=== PATIENT | female | born 1955 | race Caucasian/White ===

== ENCOUNTER 2017-12-21 15:57 | Inpatient (IN) | payer OTHER ==
[2017-12-21] VITALS (11 sets, daily range): BP systolic 90–131; BP diastolic 60–90
[~2017-12-21] VITALS: Ht 167.6 cm; Wt 94.6 kg
--- NOTE | ~2017-12-21 | HC ---
[facility] [place] [address] CONSULTATION Name: JOSE J RIVERO Room #: 350-P ADM IN M.R.#: [id number] Admission: 12/21/17 Attend Phys: Katiuska Hernandez MD Discharge: Date of : 53 Report #: [id number] THIS REPORT FOR: //name// CC: Gary Hernandez DATE OF SERVICE: 12/31/2017 HISTORY OF PRESENT ILLNESS: The patient is a 62-year-old white female who was admitted with nausea, vomiting, diarrhea. CT of the abdomen showed free air. She is noted to have a bowel perforation. She developed severe sepsis syndrome with shock. She underwent two abdominal surgeries on 12/21/2017 and exploratory laparotomy with small bowel resection, appendectomy, unknown source. She was left open at that time. A second surgery on 12/23/2017 was a second look, nain to the small bowel anastomosis and was thought that the patient had an uncontained acute appendicitis. Her course was complicated by acute renal insufficiency, severe protein-calorie malnutrition, critical illness myopathy. Her TPN is finished and she is now on a soft fiber diet. We are seeing her in rehabilitation medicine consultation. PAST MEDICAL HISTORY: Includes breast cancer status post bilateral mastectomy with tissue flap reconstruction 6 weeks ago. FAMILY HISTORY: Noncontributory. HABITS: No history of chronic alcohol or tobacco abuse. ALLERGIES: No known drug allergies. SOCIAL HISTORY: Lives in a house alone, two steps in. Did not utilize gait aids. She has basement laundry. No family in the area, but notes she has neighbors that can help. REVIEW OF SYSTEMS: Did not offer any current complaints of chest pain, shortness of breath or abdominal discomfort. PHYSICAL EXAMINATION: GENERAL: A 62-year-old white female in no obvious distress. VITAL SIGNS: Last recorded temperature is 98.8, pulse 82, respirations 16, blood pressure 152/60. The patient is alert. HEENT: Appeared to be benign. NEUROLOGIC: Cranial nerves are grossly intact. Facies are symmetric. ABDOMEN: Midline abdominal incision appears to be intact. She has the incision from her recent mastectomies as well, which appeared to be healing. With [facility] [address] [place] [address] CONSULTATION Name: JOSE J RIVERO Room #: 350-P [facility] IN .R.#: [id number] Admission: 12/21/17 Attend Phys: Katiuska Hernandez MD Discharge: Date of : 53 Report #: [id number] functional range of motion of the upper extremities she appears to have strength at a grade 4-/5. Lower extremities, no focal calf swelling, functional range of motion with strength grade 4-/5. DTRs are trace to 1. Sit to stand is contact guard. Gait 160 feet contact guard front-wheeled walker. Bed mobility has been min assist. She does demonstrate decreased endurance. ASSESSMENT: A 62-year-old white female with the following problem list: 1. Critical illness myopathy. 2. Medical complexity with generalized debilitation. 3. Severe sepsis syndrome with shock. 4. Bowel perforation apparently an uncontained acute appendicitis, status post exploratory laparotomy with small bowel resection, appendectomy and second look laparoscopic surgery with stapling small bowel anastomosis. 5. Acute renal insufficiency, which has improved. 6. TPN is finished, now on soft fiber diet. 7. Recent breast cancer with bilateral mastectomy with tissue flap reconstruction 6 weeks prior to admission. PLAN: She is gradually progressing, although definitely has decreased endurance and has weakness as noted above. Insurance will need to be checked regarding rehab therapy options. We will be glad to follow along with you. Rehab unit beds here at [facility] are tight, but we will be glad to follow along with you as noted. <ELECTRONICALLY SIGNED> By: Teddy Vera MD 01/04/18 1226 1210 [id number] Teddy Vera MD /[facility]
--- NOTE | ~2017-12-21 | EKG ---
[address] [address] ELECTROCARDIOGRAM REPORT Name: JOSE J RIVERO Room #: 238- ADM IN M.R.#: [id number] Admission: 12/21/17 Attend Phys: Katiuska Hernandez MD Discharge: Date of : 53 Report #: [id number] THIS REPORT FOR: //name// [facility] Test Date: 2017-12-22 Test Time: 06:58:34 Pat Name: JOSE J RIVERO Department: Room: 238 Gender: F Jacquard Lace Weaver: MEME : 1955 Requested By: Gary Nava Order Number: [id number] MD: Guzman Bermudez Measurements Intervals [place] Rate: 115 P: 68 LA: 131 QRS: 83 QRSD: 87 T: 34 QT: 341 QTc: 472 Interpretive Statements Sinus tachycardia Atrial premature complex Borderline right axis deviation No previous ECG available for comparison Electronically Signed On 12-22-2017 7:49:51 GED TUTOR by Guzman Bermudez [email or web address] <ELECTRONICALLY SIGNED> By: Guzman Bermudez MD 12/22/17 0749 D: [id number] 7 Guzman Bermudez MD /[place]
--- NOTE | ~2017-12-21 | S ---
[facility] [place] [address] SURGICAL PATH RPT PROCEDURE Name: HELEN RIVERO Room #: 238-P ADM IN M.R.#: [id number] Admission: 12/21/17 Date of : 53 Discharge: Report #: [id number] Path Case #: [id number] PATHOLOGY REPORT COLLECTION DATE: 12/21/2017 RECEIVED DATE: 12/22/2017 SUBMITTING PHYS: Dr. Gary Nava, DO OTHER PHYS: Dr. Katiuska Cervantes SPECIMEN(S) RECEIVED: A.Appendix B.Terminal ileum * * * * * * * * * * * * FINAL DIAGNOSIS: A. Appendix, appendectomy: - Marked acute serositis present along the serosal wall. - Mucosa showing hyperplastic changes. - No evidence of acute appendicitis. B. Small bowel, terminal ileum, resection: - Marked acute serositis. - Negative for dysplasia or malignancy. - Viable margins. - One reactive lymph node. COMMENT: The bowel wall shows marked attenuation. There is extensive acute inflammation along the serosal surface consistent with serositis. Ischemic changes are not identified. A definitive area of perforation is not identified as well. (IUV:pit; 12/23/2017) PATHOLOGIST: Sade Henderson M.D. REPORT ELECTRONICALLY SIGNED BY: Sade Henderson M.D. DATE/TIME: 12/23/2017 14:50 * * * * * * * * * * * * GROSS PATHOLOGY: A. Received in formalin labeled "Helen Rivero, appendix," is an appendix measuring 8.4 cm in length and 0.8 cm in diameter with a moderate amount of attached mesoappendix. The serosal surface is pink-ray to dusky pink-johnson in appearance with a slight amount of overlying adhesions. Sectioning reveals a patent lumen filled with fecal material. Manager Local sections are submitted in cassette A1. B. The specimen is received in formalin labeled "Helen Rivero, terminal ileum". Received is an unoriented segment of small bowel [address] [address] SURGICAL PATH RPT PROCEDURE Name: MERVINTAVIAHELEN CRUZ A Room #: [facility] IN .R.#: [id number] Admission: 12/21/17 Date of : 53 Discharge: Report #: [id number] Path Case #: [id number] measuring 11.9 cm in length by 2.5 cm in diameter. Both margins are stapled closed. The serosal surface is dusky pink-ray to pink-johnson in appearance with a slight amount of overlying adhesions, as well as a moderate amount of overlying exudate. The attached mesenteric fat measures up to 2.8 cm in thickness. The specimen is opened along the antimesenteric line to reveal pink-ray mucosa with normal architectural folds. No distinct nodules or lesions are noted grossly. No areas of perforation are noted grossly. Sectioning through the attached mesenteric fat reveals a single readily identifiable lymph node measuring 0.4 cm in maximum dimensions. The specimen is submitted representatively as follows: B1-B2 both margins B3 business development representative cross-sections of mucosa B4 intact lymph node. (CAA; 12/22/2017) CLINICAL HISTORY: Acute abdomen, acute appendicitis, ischemic small bowel, purulent peritonitis INITIAL CPT CODE(S): A; 52332 B; 98490 Professional services performed by [employer] at [facility] [address], [place] [address] Technical services performed by [employer] at [address] [place] [address], [address], [place] [address]. [facility] [address] [place] [address] PHONE: [phone] DIRECTOR: Kendall Tirado M.D. * * * END OF REPORT * * *
--- NOTE | ~2017-12-21 | D ---
[facility] [place] [address] DISCHARGE SUMMARY Name: JOSE J RIVERO Room #: 350-P [facility] IN M.R.#: [id number] Admission: 12/21/17 Attend Phys: Katiuska Hernandez MD Discharge: 01/14/18 Date of : 53 Report #: [id number] THIS REPORT FOR: //name// CC: Gary Hernandez DATE OF SERVICE: 01/14/2018 FINAL DIAGNOSES: 1. Sepsis syndrome. 2. Bowel perforation. 3. Peritonitis. 4. Abdominal incisional wound. 5. Anasarca. 6. Hypertension. 7. Anemia due to acute blood loss. 8. Protein calorie malnutrition. 9. Critical illness myopathy. 10. Recent history of breast cancer. HOSPITAL COURSE: The patient was admitted with abdominal pain. She was diagnosed with bowel perforation and sepsis. She was taken to the operating room by Dr. Nava, which revealed disease involving the pelvis. It was unclear where the exact source was originating, but his thought was that this was probably acute appendicitis with development of peritonitis, pelvic adhesions and some evidence of ischemic bowel related to perforation. Please see the full operative note and pathology reports. This extensive surgery required delayed closure. The following day, she developed an abdominal incisional wound and fluid was drained. Eventually, a wound VAC was placed. She required several ICU days and gradually transferred out to the floor. She had a lot of anasarca responding to diuretics. She was hypertensive and medications were added. She was followed by the ID Service. She had intermittent fevers and elevated white count. Followup CT was revealing some ascites with an ill-defined fluid collection in the left upper quadrant. Unfortunately, this was in a location not amenable to IR drainage. She was treated with antibiotics and usual treatment. Gradually, her medical condition stabilized and improved. She was working with Physical Therapy. Appetite and nutritional levels remained low. Wound VAC remained in place with routine care and IV antibiotics continued. PHYSICAL EXAMINATION: GENERAL: On the day of discharge she was awake and alert. VITAL SIGNS: Stable. LUNGS: Clear. [facility] [address] [place] [address] DISCHARGE SUMMARY Name: JOSE J RIVERO Room #: 350-P [facility] IN M.R.#: [id number] Admission: 12/21/17 Attend Phys: Katiuska Hernandez MD Discharge: 01/14/18 Date of : 53 Report #: [id number] HEART: Regular. ABDOMEN: Soft, normoactive bowel sounds with VAC in place. EXTREMITIES: 2+ edema. Her weight has slowly decreased from over 100 kg down to approximately 94. She still does have some edema. DISPOSITION: She will be transferred to [facility] facility for ongoing IV antibiotics, wound care and close management of her intra-abdominal process. I have signed all her transfer orders, medications, and discussed followup with Dr. De Guzman who will be managing her there. <ELECTRONICALLY SIGNED> By: Teddy Millard MD 01/15/18 0926 0941 1016 Teddy Millard MD /nt
--- NOTE | ~2017-12-21 | H ---
[facility] [place] [address] HISTORY AND PHYSICAL Name: JOSE J RIVERO Room #: 238-P [facility] IN M.R.#: [id number] Admission: 12/21/17 Attend Phys: Katiuska Hernandez MD Discharge: Date of : 53 Report #: [id number] THIS REPORT FOR: //name// CC: Gary Hernandez DATE OF SERVICE: 12/21/2017 CHIEF COMPLAINT: Abdominal pain. HISTORY OF PRESENT ILLNESS: The patient is a 62-year-old female presented to the emergency room with nausea, vomiting, and diarrhea for about 8 days. She complained of severe right lower quadrant abdominal pain yesterday and was seen in the office. She was then directed to the emergency room. Ultimately, a CT of the abdomen revealed free air suggesting a surgical abdominal process. She was taken to the operating room last night for exploratory laparotomy by Dr. Nava, this revealed acute peritonitis and free intraperitoneal fluid due to bowel obstruction and perforation. She remained intubated overnight and remains in ICU. PAST MEDICAL HISTORY: Includes previous mastectomy. PAST SURGICAL HISTORY: As above. FAMILY HISTORY: Noncontributory. SOCIAL HISTORY: No known chronic alcohol or tobacco use. ALLERGIES: None. MEDICATIONS: Femara 2.5 mg daily, vitamin C, calcium, and vitamin D. REVIEW OF SYSTEMS: She is sedated, intubated, cannot provide a review. PHYSICAL EXAMINATION: VITAL SIGNS: Temperature 36.8, pulse 114, respirations 25, blood pressure 110/73, O2 sat 99% on the ventilator. GENERAL: She is sedated, in no distress. HEAD AND NECK: Unremarkable. LUNGS: Clear. HEART: Regular. ABDOMEN: Hypoactive bowel sounds with surgical dressings in place. EXTREMITIES: No cyanosis, clubbing, or edema. [facility] [address] [place] [address] HISTORY AND PHYSICAL Name: JOSE J RIVERO Room #: 238-P [facility] IN [facility]#: [id number] Admission: 12/21/17 Attend Phys: Katiuska Hernandez MD Discharge: Date of : 53 Report #: [id number] Operative note and CT reports were reviewed. LAB DATA: Reviewed. White count is 19, 40% bands. Creatinine 1.1. ASSESSMENT: 1. Sepsis syndrome. 2. Acute abdomen due to bowel perforation. 3. Acute hypoxic respiratory failure. 4. Severe protein-calorie malnutrition with albumin of 2. PLAN: Full ICU cares in place with surgical management of her acute abdominal process. It appears that the second procedure will be planned for tomorrow according to the notes. I have asked pulmonary service and infectious disease service to follow her stay as well. She remains critically ill. <ELECTRONICALLY SIGNED> By: Teddy Millard MD 12/22/17 1602 1057 1113 Teddy Millard MD /nt
--- NOTE | ~2017-12-21 | HC ---
[facility] [place] [address] CONSULTATION Name: JOSE J RIVERO Room #: 238-P ADM IN M.R.#: [id number] Admission: 12/21/17 Attend Phys: Katiuska Hernandez MD Discharge: Date of : 53 Report #: [id number] THIS REPORT FOR: //name// CC: Gary Hernandez TYPE OF REPORT: Infectious diseases consultation. REASON FOR CONSULTATION: I was asked to evaluate concerning severe sepsis and acute abdomen. HISTORY OF PRESENT ILLNESS: The patient was seen in the emergency room after being called by Dr. Campbell who was her attending Emergency Room physician. The patient had been complaining of nausea, some vomiting with loose stools along with severe cramping abdominal pain in the lower abdomen. She felt that she had the flu and was limiting her oral intake. She was just drinking liquids. She denies any fever, although she had rigors 1 week ago at the onset. No prior history of abdominal disease. She does have colon polyposis, which she is followed on a regular basis. She states that her last colonoscopy was improved. She does have diverticulosis. She has breast cancer that was diagnosed in May of this past year. She has had bilateral mastectomies. No adjuvant chemotherapy or radiation. She is on letrozole daily. Approximately 6 weeks ago, she underwent abdominal chest wall reconstructive surgery by Dr. Walton. Abdominal fat and appropriate vasculature was taken from her abdominal pannus and reconstructed into her chest for breast reconstruction. There were no intraoperative complications from this procedure. She did go in last week and performed an incision into the medial aspect of both flaps. For this, she was placed on cephalexin. She took a week of cephalexin that ended 3 days ago. She presented to the outpatient clinic of Dr. Gary De Guzman today. She was taken by EMS to the Emergency Room for further treatment. She has received several liters of IV fluids thus far. She complains of continued abdominal pain. She had very small loose stools 4-5 times per day without blood. Intermittent nausea and vomiting with no blood. Urine output has been diminished. No cough or sputum production. No travel. There has been no erythema or drainage from her abdominal incisions. ALLERGIES: None. MEDICATIONS: Letrozole, vitamin C, vitamin D, Os-Matt and glucosamine. FAMILY HISTORY: Noncontributory other than colon cancer. SOCIAL HISTORY: Nonsmoker. No significant alcohol intake. She is single, has pet dogs. Works as a desk job. [address] [address] CONSULTATION Name: JOSE J RIVERO Fer Room #: 238-P [facility] IN ..#: [id number] Admission: 12/21/17 Attend Phys: Katiuska Hernandez MD Discharge: Date of : 53 Report #: [id number] PAST MEDICAL HISTORY: Unremarkable other than D and C and her breast cancer history. REVIEW OF SYSTEMS: As noted above with no rashes, arthritis symptoms, dysuria or frequency. PHYSICAL EXAMINATION: VITAL SIGNS: Temperature 97.7, heart rate was 120, respiratory rate in the 30s, blood pressure 121/79 and O2 saturation 90% on room air. GENERAL: The patient was dehydrated. Mucous membranes were dry. She was pale. Mental status was normal. Tachycardic. SKIN: Unremarkable other than what is described in her chest and abdomen examination. LYMPH: Unremarkable. HEENT: Unremarkable. NECK: Supple. LUNGS: Few crackles in the bases bilaterally. HEART: Tachycardic and regular. CHEST: Chest wall breast flaps appeared healthy with no drainage or erythema. ABDOMEN: Distended. She had diffuse guarding and rebound tenderness. Lower abdominal incision was unremarkable. Her periumbilical incision was unremarkable. RECTAL: Not performed. EXTREMITIES: Unremarkable. LABORATORY STUDIES: CT scan of the abdomen showed basilar atelectasis, ascites, free air, right kidney stone and diverticulosis. She had inflammatory changes in the abdomen. Sodium 131, potassium 3.4, bicarbonate 20 and creatinine 1.8. Hemoglobin 14.6; platelet count 471,000; white count was 20,000 with 33% bands and 2% metamyelocytes. Lactate 8.2, AST 23, alkaline phosphatase 76, ALT 23 and albumin is 2. IMPRESSION: A 62-year old recent diagnosis of breast cancer and abdominoplasty with resection of skin and fat for reconstruction of breast, now 6 weeks postop with acute abdomen. I suspect perforated viscus. From her presentation, unclear the specific source. She has severe sepsis with marked leukocytosis and left shift, lactic acidosis and acute renal failure. RECOMMENDATIONS: Recommend IV fluid resuscitation, IV antibiotic therapy for abdominal colonic pathogens and surgical intervention. I have discussed with exhaust and muffler fitter, Emergency Room attending and have call out to general surgery for [facility] [address] [place] [address] CONSULTATION Name: JOSE J RIVERO Room #: 238-P [facility] IN M.R.#: [id number] Admission: 12/21/17 Attend Phys: Kaituska Hernandez MD Discharge: Date of : 53 Report #: [id number] emergent laparotomy. The patient will be cared for in the Intensive Care Unit with antibiotics adjusted for renal function. <ELECTRONICALLY SIGNED> By: Salo De Guzman MD 12/22/17 1622 1921 0033 Salo De Guzman MD /nt
--- NOTE | ~2017-12-21 | HC ---
[facility] [place] [address] CONSULTATION Name: JOSE J RIVERO Room #: 350-P ADM IN M.R.#: [id number] Admission: 12/21/17 Attend Phys: Katiuska Hernandez MD Discharge: Date of : 53 Report #: [id number] THIS REPORT FOR: //name// CC: Gary Hernandez DATE OF SERVICE: 01/04/2018 CHIEF COMPLAINT: Surgical incision line abdominal wall. HISTORY OF PRESENT ILLNESS: This is a 63-year-old female patient who is status post exploratory laparotomy with lysis of adhesions, small bowel resection, appendectomy, abdominal washout and ABThera placement due to diffuse purulent peritonitis and severe sepsis on 12/21/2017. She has undergone a second look laparotomy with upper endoscopy, rigid proctoscopy, stapled small bowel anastomosis, abdominal washout and BRANDON drain placed with a BENIGNO wound VAC placed on 12/23/2017. She has been steadily improving. She has had return of bowel function and is eating. There are a few areas of separation along the incision line and I have been asked to see her with regard to wound care. PAST MEDICAL HISTORY: Positive for previous mastectomy. FAMILY HISTORY: Noncontributory. SOCIAL HISTORY: Negative for alcohol or tobacco use. ALLERGIES: None. MEDICATIONS: Include Femara, vitamin C, calcium, vitamin D. ALLERGIES: None. REVIEW OF SYSTEMS: CONSTITUTIONAL: The patient denies fever, chills or weight loss. NEUROLOGICAL: The patient denies focal weakness, numbness, tingling. EYES: The patient denies visual changes, redness or drainage. ENT: The patient denies earache, nasal drainage or sore throat. CARDIOVASCULAR: The patient denies chest pain or palpitations, diaphoresis. PULMONARY: The patient denies cough or shortness of breath. GASTROINTESTINAL: The patient denies nausea, vomiting, diarrhea or abdominal pain. She does note the abdominal incision line. ORTHOPEDIC: The patient denies pain, swelling of the extremities. DERMATOLOGIC: The patient denies rashes, itching, lumps. ENDOCRINE: The patient denies heat or cold intolerance, polydipsia, polyphagia, [facility] [address] [place] [address] CONSULTATION Name: JOSE J RIVERO Fer Room #: 350- ADM IN ..#: [id number] Admission: 12/21/17 Attend Phys: Katiuska Hernandez MD Discharge: Date of : 53 Report #: [id number] polyuria. Other systems in a 14-point review of systems are negative. PHYSICAL EXAMINATION: VITAL SIGNS: At this time include pulse rate 92, respiratory rate 16, blood pressure noted to be 222/66, temperature 101.3. GENERAL: This is a well-developed, well-nourished female patient, who appears to be in minimal distress. HEENT: Normocephalic. Nose and throat are clear. NECK: Supple. LUNGS: Clear. HEART: Regular rhythm without a murmur. ABDOMEN: Slightly distended. It is nontender and soft. There is a midline abdominal incision. In the lower portion of the abdominal incision, there are 2 areas of separation. There is a moderate amount of undermining and both of these areas do seem to communicate. There is a serosanguineous type drainage noted. There is no odor. No purulent or fecal material is noted in the drainage. EXTREMITIES: Without clubbing, cyanosis or edema. NEUROLOGIC: The patient is alert, oriented and appropriate with moving all 4 extremities spontaneously. LABORATORY DATA: Includes sodium 133, potassium 3.8, chloride 99, CO2 of 25, BUN 8, creatinine 0.6, glucose 167, calcium is 7.9, white blood cell count is 10,000 with a hemoglobin of 7.6, hematocrit 22.4, platelet count 634,000. CLINICAL IMPRESSION: 1. Surgical wound to the abdominal wall with small areas of separation, possible small seroma, but no evidence of intraperitoneal communication nor is there evidence of any sort of fistula noted at this time. 2. History of peritonitis. 3. Critical illness myopathy. 4. Hypertension. 5. History of perforated bowel. RECOMMENDATIONS: At this point in time, we have gently packed some quarter inch iodoform gauze into both of these areas, covered with an ABD. We will see if we see some contraction and granulation of the space beneath the incision line. It may be a consideration to open the lower portion of the incision line in order to possibly apply wound VAC or be able to better pack the area. We will discuss further with Dr. Nava. All questions have been answered. I do appreciate being asked to see her in consultation. <ELECTRONICALLY SIGNED> By: Jean Carlos Clay MD 01/05/18 0750 1950 0022 Jean Carlos Clay MD /nt
[2017-12-21 16:26] LABS: HEMATOCRIT 43.6 % (37.0-47.0); HEMOGLOBIN 14.6 gm/dL (12.0-15.0); MCH 29.9 pg (26.0-34.0); MCHC 33.5 g/dL (28.0-37.0); MCV 89.2 fL (80.0-100.0); PLATELET COUNT 471 thou/uL (150-400); RBC 4.89 mil/uL (4.20-5.00); RDW 14.5 % (10.5-14.5); WBC 20.4 thou/uL (4.0-11.0)
[2017-12-21 16:34] LABS: CALCIUM 8.8 mg/dL (8.5-10.1); CREATININE 2.3 mg/dL (0.6-1.0); POTASSIUM 3.7 mmol/L (3.5-5.1)
[2017-12-21 16:39] LABS: DIRECT BILIRUBIN 0.6 mg/dL (<0.1-0.3)
[2017-12-21 17:10] LABS: ABSOLUTE NEUTROPHILS 17.1 thou/uL (1.4-8.2); ANISOCYTOSIS 1+; METAMYELOCYTES 2 %; NUCLEATED RBCS 1 /100WBC; POLYCHROMASIA OCCASIONAL
[2017-12-21 17:20] LABS: APTT 32.4 Seconds (24.5-32.8); INR 1.6; PROTIME 16.2 Seconds (9.3-11.4)
[2017-12-21] MEDS ORDERED: VITAMINC500 PO (18:16)
[2017-12-21] MEDS ORDERED: CALCIUM 500 +1 EAC5 PO (18:16)
[2017-12-21] MEDS ORDERED: FEMARA2.5 MG PO (18:16)
[2017-12-21] MEDS ORDERED: VITAMIN D1000 UNI1 PO (18:16)
[2017-12-21 18:17] LABS: CALCIUM 7.7 mg/dL (8.5-10.1); CREATININE 1.8 mg/dL (0.6-1.0); POTASSIUM 3.4 mmol/L (3.5-5.1)
[2017-12-21] MEDS ORDERED: GLUCOSAMINE &1 EACH PO (18:17)
[2017-12-21 19:18] LABS: URINE BILIRUBIN 1+ (Negative); URINE BLOOD NEGATIVE (Negative); URINE CLARITY CLEAR; URINE COLOR YELLOW; URINE GLUCOSE-RANDOM* NEGATIVE (Negative); URINE KETONES TRACE (Negative); URINE LEUKOCYTES NEGATIVE (Negative); URINE NITRITE NEGATIVE (Negative); URINE PROTEIN (DIPSTICK) 1+ (Negative); URINE SPECIFIC GRAVITY >= 1.030 (1.005-1.035); URINE UROBILINOGEN 0.2 E.U./dl (0.2-1.0)
[2017-12-21 19:22] LABS: ICTOTEST (BILI CONFIRMATORY) Positive (Negative)
[2017-12-21 19:27] LABS: SQUAMOUS 0-3 Few /LPF (0-3)
[2017-12-21 19:28] LABS: AMORPHOUS URATES Few /LPF (None Seen); HYALINE CASTS 0-3 Few /LPF (None Seen); URINE RBC None Seen /HPF (0-2); URINE WBC 0-5 Rare /HPF (0-5)
[2017-12-21 23:40] LABS: BE(vivo) -7.9 mmol/L (-2 to +3); HCO3 16.4 mmol/L (22.0-26.0); PCO2 30.5 mmHg (35.0-45.0); pH 7.348 (7.360-7.450); sO2 96.3 % (92.0-98.0)
[2017-12-21 23:48] LABS: HEMATOCRIT 38.2 % (37.0-47.0); MCH 29.2 pg (26.0-34.0); MCHC 32.7 g/dL (28.0-37.0); MCV 89.1 fL (80.0-100.0); RBC 4.28 mil/uL (4.20-5.00); RDW 14.6 % (10.5-14.5); WBC 17.4 thou/uL (4.0-11.0)
[2017-12-21 23:49] LABS: HEMOGLOBIN 12.5 gm/dL (12.0-15.0); PLATELET COUNT 375 thou/uL (150-400)
[2017-12-22] VITALS (38 sets, daily range): BP systolic 97–124; BP diastolic 57–88
[2017-12-22 00:03] LABS: APTT 37.5 Seconds (24.5-32.8); FIBRINOGEN 408.5 mg/dL (210-360); INR 1.7; PROTIME 17.1 Seconds (9.3-11.4)
[2017-12-22 00:15] LABS: ANISOCYTOSIS 1+; METAMYELOCYTES 1 %; POLYCHROMASIA 1+
[2017-12-22 00:16] LABS: TOXIC GRANULATION 1+
[2017-12-22 04:07] LABS: HEMATOCRIT 37.3 % (37.0-47.0); HEMOGLOBIN 12.5 gm/dL (12.0-15.0); MCH 29.7 pg (26.0-34.0); MCHC 33.6 g/dL (28.0-37.0); MCV 88.5 fL (80.0-100.0); PLATELET COUNT 369 thou/uL (150-400); RBC 4.21 mil/uL (4.20-5.00); RDW 14.3 % (10.5-14.5); WBC 19.6 thou/uL (4.0-11.0)
[2017-12-22 04:09] LABS: ALBUMIN 1.2 g/dL (3.4-5.0); CALCIUM 6.3 mg/dL (8.5-10.1); CREATININE 1.1 mg/dL (0.6-1.0); POTASSIUM 3.7 mmol/L (3.5-5.1); TOTAL BILIRUBIN 0.8 mg/dL (<0.1-1.0); TOTAL PROTEIN 4.1 g/dL (6.4-8.2)
[2017-12-22 05:09] LABS: BE(vivo) -7.2 mmol/L (-2 to +3); HCO3 16.3 mmol/L (22.0-26.0); PCO2 27.8 mmHg (35.0-45.0); pH 7.386 (7.360-7.450); sO2 97.5 % (92.0-98.0)
[2017-12-22 06:31] LABS: ABSOLUTE NEUTROPHILS 17.8 thou/uL (1.4-8.2); ATYPICAL LYMPHS 1 %
[2017-12-22 06:32] LABS: POLYCHROMASIA 1+; TOXIC GRANULATION 1+
[2017-12-22 10:57] LABS: URINE BILIRUBIN 1+ (Negative); URINE BLOOD 2+ (Negative); URINE CLARITY CLEAR; URINE COLOR YELLOW; URINE GLUCOSE-RANDOM* NEGATIVE (Negative); URINE KETONES NEGATIVE (Negative); URINE LEUKOCYTES-REFLEX NEGATIVE (Negative); URINE NITRITE-REFLEX NEGATIVE (Negative); URINE PROTEIN (DIPSTICK) 1+ (Negative); URINE SPECIFIC GRAVITY >= 1.030 (1.005-1.035); URINE UROBILINOGEN 0.2 E.U./dl (0.2-1.0)
[2017-12-22 11:00] LABS: ICTOTEST (BILI CONFIRMATORY) Negative (Negative)
[2017-12-22 11:06] LABS: BACTERIA-REFLEX 1-9 Few /HPF (None Seen); COARSE GRANULAR CASTS 4-10 Moderate /LPF (None Seen); SQUAMOUS 0-3 Few /LPF (0-3); URINE RBC 3-10 Few /HPF (0-2); URINE WBC-REFLEX None Seen /HPF (0-5)
[2017-12-22 11:07] LABS: AMORPHOUS URATES Moderate /LPF (None Seen)
[2017-12-23] VITALS (42 sets, daily range): BP systolic 98–160; BP diastolic 54–90
[2017-12-23 05:56] LABS: HEMATOCRIT 28.7 % (37.0-47.0); MCH 29.6 pg (26.0-34.0); MCHC 33.3 g/dL (28.0-37.0); MCV 88.8 fL (80.0-100.0); PLATELET COUNT 308 thou/uL (150-400); RBC 3.23 mil/uL (4.20-5.00); RDW 14.6 % (10.5-14.5); WBC 16.2 thou/uL (4.0-11.0)
[2017-12-23 06:01] LABS: HEMOGLOBIN 9.6 gm/dL (12.0-15.0)
[2017-12-23 06:03] LABS: CALCIUM 6.8 mg/dL (8.5-10.1); CREATININE 0.6 mg/dL (0.6-1.0); POTASSIUM 3.2 mmol/L (3.5-5.1)
[2017-12-23 07:01] LABS: ABSOLUTE NEUTROPHILS 15.7 thou/uL (1.4-8.2); TOXIC GRANULATION 1+
[2017-12-23 09:52] LABS: HEMATOCRIT 28.7 % (37.0-47.0); HEMOGLOBIN 9.6 gm/dL (12.0-15.0); MCH 29.6 pg (26.0-34.0); MCHC 33.6 g/dL (28.0-37.0); RBC 3.25 mil/uL (4.20-5.00); RDW 14.3 % (10.5-14.5); WBC 16.3 thou/uL (4.0-11.0)
[2017-12-23 10:08] LABS: CALCIUM 7.3 mg/dL (8.5-10.1); CREATININE 0.6 mg/dL (0.6-1.0); POTASSIUM 3.2 mmol/L (3.5-5.1)
[2017-12-24] VITALS (13 sets, daily range): BP systolic 157–213; BP diastolic 59–102
[2017-12-24 05:32] LABS: ALBUMIN 1.1 g/dL (3.4-5.0); CALCIUM 7.2 mg/dL (8.5-10.1); CREATININE 0.5 mg/dL (0.6-1.0); MAGNESIUM 2.2 mg/dL (1.8-2.4); POTASSIUM 4.1 mmol/L (3.5-5.1); TOTAL BILIRUBIN 0.4 mg/dL (<0.1-1.0); TOTAL PROTEIN 4.5 g/dL (6.4-8.2)
[2017-12-24 05:33] LABS: HEMATOCRIT 28.8 % (37.0-47.0); HEMOGLOBIN 9.4 gm/dL (12.0-15.0); MCH 29.1 pg (26.0-34.0); MCHC 32.5 g/dL (28.0-37.0); MCV 89.7 fL (80.0-100.0); RBC 3.21 mil/uL (4.20-5.00); RDW 14.4 % (10.5-14.5); WBC 15.9 thou/uL (4.0-11.0)
[2017-12-24 12:17] LABS: PHOSPHORUS 3.1 mg/dL (2.5-4.9)
[2017-12-25] VITALS (26 sets, daily range): BP systolic 146–216; BP diastolic 61–115
[2017-12-25 05:17] LABS: ALBUMIN 1.1 g/dL (3.4-5.0); CALCIUM 7.2 mg/dL (8.5-10.1); CREATININE 0.5 mg/dL (0.6-1.0); MAGNESIUM 1.9 mg/dL (1.8-2.4); PHOSPHORUS 2.5 mg/dL (2.5-4.9); POTASSIUM 3.5 mmol/L (3.5-5.1); TOTAL BILIRUBIN 0.5 mg/dL (<0.1-1.0); TOTAL PROTEIN 4.5 g/dL (6.4-8.2)
[2017-12-25 10:14] LABS: HEMATOCRIT 28.5 % (37.0-47.0); HEMOGLOBIN 9.7 gm/dL (12.0-15.0); MCH 29.6 pg (26.0-34.0); MCV 86.9 fL (80.0-100.0); RBC 3.28 mil/uL (4.20-5.00); RDW 14.2 % (10.5-14.5); WBC 16.7 thou/uL (4.0-11.0)
[2017-12-26] VITALS (15 sets, daily range): BP systolic 143–197; BP diastolic 57–90
[2017-12-26 04:58] LABS: HEMATOCRIT 28.3 % (37.0-47.0); HEMOGLOBIN 9.5 gm/dL (12.0-15.0); MCH 29.5 pg (26.0-34.0); MCHC 33.6 g/dL (28.0-37.0); MCV 87.9 fL (80.0-100.0); RBC 3.22 mil/uL (4.20-5.00); RDW 14.4 % (10.5-14.5); WBC 13.7 thou/uL (4.0-11.0)
[2017-12-26 05:28] LABS: CALCIUM 7.7 mg/dL (8.5-10.1); CREATININE 0.5 mg/dL (0.6-1.0); PHOSPHORUS 2.8 mg/dL (2.5-4.9); POTASSIUM 3.6 mmol/L (3.5-5.1)
[2017-12-27 04:15] VITALS: BP 170/58
[2017-12-27 05:55] LABS: HEMATOCRIT 28.1 % (37.0-47.0); HEMOGLOBIN 9.1 gm/dL (12.0-15.0); MCH 28.9 pg (26.0-34.0); MCHC 32.4 g/dL (28.0-37.0); MCV 89.2 fL (80.0-100.0); PLATELET COUNT 397 thou/uL (150-400); RBC 3.15 mil/uL (4.20-5.00); RDW 14.6 % (10.5-14.5); WBC 14.9 thou/uL (4.0-11.0)
[2017-12-27 06:07] LABS: CALCIUM 7.6 mg/dL (8.5-10.1); CREATININE 0.5 mg/dL (0.6-1.0); POTASSIUM 3.1 mmol/L (3.5-5.1)
[2017-12-27 08:00] VITALS: BP 160/80
[2017-12-27 11:02] VITALS: BP 167/77
[2017-12-27 13:39] LABS: ABSOLUTE NEUTROPHILS 11.8 thou/uL (1.4-8.2); ANISOCYTOSIS 1+; METAMYELOCYTES 2 %; POLYCHROMASIA OCCASIONAL
[2017-12-27 13:40] LABS: HYPOCHROMASIA SLIGHT
[2017-12-27 20:11] VITALS: BP 198/84
[2017-12-28 05:18] LABS: HEMATOCRIT 26.9 % (37.0-47.0); HEMOGLOBIN 9.2 gm/dL (12.0-15.0); MCH 30.1 pg (26.0-34.0); MCHC 34.2 g/dL (28.0-37.0); MCV 87.9 fL (80.0-100.0); RBC 3.06 mil/uL (4.20-5.00); RDW 14.7 % (10.5-14.5); WBC 15.4 thou/uL (4.0-11.0)
[2017-12-28 05:23] LABS: PLATELET COUNT 483 thou/uL (150-400)
[2017-12-28 05:29] LABS: CALCIUM 7.6 mg/dL (8.5-10.1); CREATININE 0.5 mg/dL (0.6-1.0); MAGNESIUM 2.1 mg/dL (1.8-2.4); PHOSPHORUS 3.2 mg/dL (2.5-4.9); POTASSIUM 3.5 mmol/L (3.5-5.1)
[2017-12-28 05:45] VITALS: BP 189/84
[2017-12-28 06:04] LABS: ABSOLUTE NEUTROPHILS 12.9 thou/uL (1.4-8.2); ATYPICAL LYMPHS 1 %; METAMYELOCYTES 3 %; POLYCHROMASIA 1+
[2017-12-28 07:24] VITALS: BP 190/74
[2017-12-28 09:02] VITALS: BP 173/72
[2017-12-28 11:20] VITALS: BP 175/71
[2017-12-28 15:27] VITALS: BP 166/75
[2017-12-28 19:00] VITALS: BP 149/68
[2017-12-29 03:00] VITALS: BP 165/77
[2017-12-29 05:09] LABS: HEMATOCRIT 26.2 % (37.0-47.0); HEMOGLOBIN 8.7 gm/dL (12.0-15.0); MCH 29.5 pg (26.0-34.0); MCHC 33.2 g/dL (28.0-37.0); PLATELET COUNT 494 thou/uL (150-400); RBC 2.95 mil/uL (4.20-5.00); RDW 14.8 % (10.5-14.5); WBC 16.5 thou/uL (4.0-11.0)
[2017-12-29 06:30] LABS: ABSOLUTE NEUTROPHILS 14.2 thou/uL (1.4-8.2); IMMATURE MONONUCLEARS 1 %
[2017-12-29 08:44] VITALS: BP 193/64
[2017-12-29 17:43] VITALS: BP 183/84
[2017-12-29 19:05] VITALS: BP 148/57
[2017-12-30 03:00] VITALS: BP 149/59
[2017-12-30 07:04] LABS: ABSOLUTE NEUTROPHILS 13.2 thou/uL (1.4-8.2); BASOPHILS 0.7 % (0.0-2.0); EOSINOPHILS 1.7 % (0.0-3.0); HEMOGLOBIN 7.8 gm/dL (12.0-15.0); LYMPHOCYTES 5.4 % (24.0-44.0); MCH 29.9 pg (26.0-34.0); MCHC 33.9 g/dL (28.0-37.0); MCV 88.4 fL (80.0-100.0); MONOCYTES 6.1 % (1.0-8.0); PLATELET COUNT 454 thou/uL (150-400); POLYS 86.1 % (36.0-66.0); RDW 14.9 % (10.5-14.5); WBC 15.3 thou/uL (4.0-11.0)
[2017-12-30 07:30] LABS: CALCIUM 7.6 mg/dL (8.5-10.1); CREATININE 0.5 mg/dL (0.6-1.0); MAGNESIUM 2.1 mg/dL (1.8-2.4); PHOSPHORUS 3.8 mg/dL (2.5-4.9); POTASSIUM 3.7 mmol/L (3.5-5.1)
[2017-12-30 08:11] VITALS: BP 137/64
[2017-12-30 11:42] VITALS: BP 139/59
[2017-12-30 15:25] VITALS: BP 145/63
[2017-12-30 19:15] VITALS: BP 149/56
[2017-12-31 03:45] VITALS: BP 151/61
[2017-12-31 04:33] LABS: CALCIUM 7.4 mg/dL (8.5-10.1); CREATININE 0.6 mg/dL (0.6-1.0); POTASSIUM 4.1 mmol/L (3.5-5.1)
[2017-12-31 07:30] LABS: ABSOLUTE NEUTROPHILS 11.2 thou/uL (1.4-8.2); BASOPHILS 0.6 % (0.0-2.0); EOSINOPHILS 1.5 % (0.0-3.0); HEMATOCRIT 21.7 % (37.0-47.0); HEMOGLOBIN 7.1 gm/dL (12.0-15.0); MCH 29.3 pg (26.0-34.0); MCHC 32.8 g/dL (28.0-37.0); MCV 89.3 fL (80.0-100.0); MONOCYTES 7.8 % (1.0-8.0); PLATELET COUNT 455 thou/uL (150-400); POLYS 83.1 % (36.0-66.0); RBC 2.43 mil/uL (4.20-5.00); RDW 15.1 % (10.5-14.5); WBC 13.5 thou/uL (4.0-11.0)
[2017-12-31 08:54] VITALS: BP 152/60
[2017-12-31 20:15] VITALS: BP 145/45
[2018-01-01 05:08] VITALS: BP 152/61
[2018-01-01 05:55] LABS: HEMATOCRIT 22.7 % (37.0-47.0); HEMOGLOBIN 7.6 gm/dL (12.0-15.0)
[2018-01-01 06:08] LABS: CALCIUM 7.9 mg/dL (8.5-10.1); CREATININE 0.6 mg/dL (0.6-1.0); POTASSIUM 3.8 mmol/L (3.5-5.1)
[2018-01-01 07:49] VITALS: BP 192/62
[2018-01-01 12:29] VITALS: BP 160/64
[2018-01-01 14:02] VITALS: BP 160/64
[2018-01-01 16:11] VITALS: BP 182/91
[2018-01-01 19:01] VITALS: BP 161/68
[2018-01-02] VITALS (7 sets, daily range): BP systolic 142–188; BP diastolic 55–85
[2018-01-02 05:16] LABS: ABSOLUTE NEUTROPHILS 9.3 thou/uL (1.4-8.2); EOSINOPHILS 1.1 % (0.0-3.0); HEMATOCRIT 21.9 % (37.0-47.0); HEMOGLOBIN 7.4 gm/dL (12.0-15.0); LYMPHOCYTES 8.6 % (24.0-44.0); MCH 29.1 pg (26.0-34.0); MCHC 33.6 g/dL (28.0-37.0); MCV 86.6 fL (80.0-100.0); MONOCYTES 10.7 % (1.0-8.0); POLYS 78.6 % (36.0-66.0); RBC 2.53 mil/uL (4.20-5.00); RDW 14.6 % (10.5-14.5); WBC 11.8 thou/uL (4.0-11.0)
[2018-01-02 05:22] LABS: PLATELET COUNT 535 thou/uL (150-400)
[2018-01-03 04:00] VITALS: BP 148/55
[2018-01-03 07:24] VITALS: BP 175/64
[2018-01-03 11:13] VITALS: BP 133/60
[2018-01-03 11:32] LABS: CALCIUM 7.9 mg/dL (8.5-10.1); CREATININE 0.6 mg/dL (0.6-1.0); POTASSIUM 3.8 mmol/L (3.5-5.1)
[2018-01-03 15:19] VITALS: BP 189/71
[2018-01-03 20:00] VITALS: BP 170/77
[2018-01-04 04:00] VITALS: BP 150/59
[2018-01-04 06:29] LABS: ABSOLUTE NEUTROPHILS 7.7 thou/uL (1.4-8.2); BASOPHILS 4.2 % (0.0-2.0); EOSINOPHILS 1.4 % (0.0-3.0); HEMATOCRIT 22.4 % (37.0-47.0); HEMOGLOBIN 7.6 gm/dL (12.0-15.0); LYMPHOCYTES 10.6 % (24.0-44.0); MCH 29.6 pg (26.0-34.0); MCHC 33.7 g/dL (28.0-37.0); MCV 87.7 fL (80.0-100.0); MONOCYTES 10.8 % (1.0-8.0); RBC 2.56 mil/uL (4.20-5.00); RDW 14.8 % (10.5-14.5); WBC 10.6 thou/uL (4.0-11.0)
[2018-01-04 06:35] LABS: PLATELET COUNT 634 thou/uL (150-400)
[2018-01-04 07:10] VITALS: BP 162/61
[2018-01-04 11:11] VITALS: BP 175/66
[2018-01-04 15:10] VITALS: BP 156/68
[2018-01-04 19:01] VITALS: BP 222/66
[2018-01-04 20:38] VITALS: BP 196/75
[2018-01-05 00:43] VITALS: BP 179/63
[2018-01-05 03:44] VITALS: BP 167/62
[2018-01-05 07:30] VITALS: BP 158/52
[2018-01-05 12:00] VITALS: BP 146/58
[2018-01-05 17:23] VITALS: BP 145/87
[2018-01-05 20:00] VITALS: BP 119/55
[2018-01-06 05:45] VITALS: BP 143/51
[2018-01-06 06:13] LABS: HEMATOCRIT 22.6 % (37.0-47.0); HEMOGLOBIN 7.4 gm/dL (12.0-15.0); MCH 28.5 pg (26.0-34.0); MCHC 32.6 g/dL (28.0-37.0); MCV 87.4 fL (80.0-100.0); RBC 2.59 mil/uL (4.20-5.00); RDW 15.1 % (10.5-14.5); WBC 12.1 thou/uL (4.0-11.0)
[2018-01-06 06:35] LABS: CALCIUM 7.7 mg/dL (8.5-10.1); CREATININE 0.7 mg/dL (0.6-1.0); POTASSIUM 3.3 mmol/L (3.5-5.1)
[2018-01-06 07:33] VITALS: BP 148/50
[2018-01-06 12:28] VITALS: BP 137/92
[2018-01-06 15:00] VITALS: BP 108/43
[2018-01-06 19:25] VITALS: BP 122/39
[2018-01-07 03:45] VITALS: BP 136/53
[2018-01-07 06:11] LABS: ABSOLUTE NEUTROPHILS 13.5 thou/uL (1.4-8.2); BASOPHILS 0.2 % (0.0-2.0); EOSINOPHILS 1.7 % (0.0-3.0); HEMATOCRIT 26.3 % (37.0-47.0); HEMOGLOBIN 8.6 gm/dL (12.0-15.0); LYMPHOCYTES 5.7 % (24.0-44.0); MCH 28.3 pg (26.0-34.0); MCHC 32.6 g/dL (28.0-37.0); MCV 86.8 fL (80.0-100.0); MONOCYTES 10.2 % (1.0-8.0); PLATELET COUNT 684 thou/uL (150-400); POLYS 82.2 % (36.0-66.0); RBC 3.02 mil/uL (4.20-5.00); RDW 15.1 % (10.5-14.5); WBC 16.5 thou/uL (4.0-11.0)
[2018-01-07 06:24] LABS: CREATININE 0.7 mg/dL (0.6-1.0); POTASSIUM 3.7 mmol/L (3.5-5.1)
[2018-01-07 07:07] VITALS: BP 143/50
[2018-01-07 20:05] VITALS: BP 157/50
[2018-01-08 03:40] VITALS: BP 137/69
[2018-01-08 04:08] LABS: RBC 2.45 mil/uL (4.20-5.00); WBC 15.2 thou/uL (4.0-11.0)
[2018-01-08 04:10] LABS: HEMOGLOBIN 7.1 gm/dL (12.0-15.0); MCH 28.8 pg (26.0-34.0); MCHC 33.6 g/dL (28.0-37.0); MCV 85.6 fL (80.0-100.0)
[2018-01-08 04:28] LABS: CALCIUM 7.4 mg/dL (8.5-10.1); CREATININE 0.7 mg/dL (0.6-1.0); POTASSIUM 3.9 mmol/L (3.5-5.1)
[2018-01-08 07:50] VITALS: BP 134/48
[2018-01-08 15:52] VITALS: BP 127/50
[2018-01-08 19:07] VITALS: BP 134/60
[2018-01-09 03:40] VITALS: BP 126/49
[2018-01-09 08:55] VITALS: BP 126/54
[2018-01-09 15:16] VITALS: BP 125/57
[2018-01-09 19:45] VITALS: BP 132/58
[2018-01-09 21:00] VITALS: BP 129/53
[2018-01-10 04:45] VITALS: BP 120/58
[2018-01-10 09:45] VITALS: BP 139/60
[2018-01-10 19:54] VITALS: BP 139/58
[2018-01-11 03:42] VITALS: BP 123/49
[2018-01-11 07:52] LABS: MCV 85.5 fL (80.0-100.0); RDW 15.6 % (10.5-14.5)
[2018-01-11 07:54] LABS: ABSOLUTE NEUTROPHILS 8.2 thou/uL (1.4-8.2); EOSINOPHILS 2.7 % (0.0-3.0); HEMATOCRIT 20.4 % (37.0-47.0); HEMOGLOBIN 6.8 gm/dL (12.0-15.0); LYMPHOCYTES 9.9 % (24.0-44.0); MCH 28.6 pg (26.0-34.0); MCHC 33.4 g/dL (28.0-37.0); MONOCYTES 11.8 % (1.0-8.0); PLATELET COUNT 437 thou/uL (150-400); POLYS 74.6 % (36.0-66.0); RBC 2.39 mil/uL (4.20-5.00)
[2018-01-11 08:04] LABS: ALBUMIN 1.3 g/dL (3.4-5.0); CALCIUM 7.3 mg/dL (8.5-10.1); CREATININE 0.6 mg/dL (0.6-1.0); POTASSIUM 4.4 mmol/L (3.5-5.1); TOTAL BILIRUBIN 0.1 mg/dL (<0.1-1.0); TOTAL PROTEIN 4.5 g/dL (6.4-8.2)
[2018-01-11 08:15] VITALS: BP 149/58
[2018-01-11 16:00] VITALS: BP 135/62
[2018-01-11 19:45] VITALS: BP 132/58
[2018-01-12 04:00] VITALS: BP 135/52
[2018-01-12 08:06] VITALS: BP 132/50
[2018-01-12 18:20] VITALS: BP 123/50
[2018-01-12 19:45] VITALS: BP 128/57
[2018-01-13 04:10] VITALS: BP 140/51
[2018-01-13 06:42] LABS: HEMOGLOBIN 6.9 gm/dL (12.0-15.0); MCV 83.9 fL (80.0-100.0)
[2018-01-13 06:44] LABS: MCH 27.6 pg (26.0-34.0); MCHC 32.9 g/dL (28.0-37.0); RBC 2.5 mil/uL (4.20-5.00); RDW 16.1 % (10.5-14.5)
[2018-01-13 07:04] LABS: CALCIUM 7.9 mg/dL (8.5-10.1); CREATININE 0.7 mg/dL (0.6-1.0); POTASSIUM 3.9 mmol/L (3.5-5.1)
[2018-01-13 07:58] VITALS: BP 124/49
[2018-01-13 09:41] VITALS: BP 124/49
[2018-01-13 16:25] VITALS: BP 130/50
[2018-01-13 19:35] VITALS: BP 148/62
[2018-01-14 03:50] VITALS: BP 119/53
[2018-01-14 05:34] LABS: HEMOGLOBIN 6.5 gm/dL (12.0-15.0); RBC 2.36 mil/uL (4.20-5.00)
[2018-01-14 05:38] LABS: MCH 27.4 pg (26.0-34.0); MCHC 32.8 g/dL (28.0-37.0); MCV 83.7 fL (80.0-100.0); RDW 16.6 % (10.5-14.5); WBC 12.9 thou/uL (4.0-11.0)
[2018-01-14 05:49] LABS: HEMATOCRIT 19.8 % (37.0-47.0)
[2018-01-14 05:59] LABS: CALCIUM 7.8 mg/dL (8.5-10.1); CREATININE 0.7 mg/dL (0.6-1.0); POTASSIUM 3.8 mmol/L (3.5-5.1)
[2018-01-14 08:36] VITALS: BP 146/60
[2018-01-14] MEDS ORDERED: CLONIDINE1 EAC1 TRANSDERM (09:24)
[2018-01-14] MEDS ORDERED: ENOXAPARIN40 MG/0.1 SUBQ (09:24)
[2018-01-14] MEDS ORDERED: K-DUR 20 MEQ T20 MEQ PO (09:25)
[2018-01-14] MEDS ORDERED: ACETAMINOPHEN325 M1 PO (09:25)
[2018-01-14] MEDS ORDERED: NORCO 10-325 T1 EACH PO (09:25)
[2018-01-14] MEDS ORDERED: CARVEDILOL25 MG PO (09:25)
[2018-01-14] MEDS ORDERED: COZAAR 50 MG TA50 M1 PO (09:25)
[2018-01-14] MEDS ORDERED: DEMADEX20 MG PO (09:26)
[2018-01-14] MEDS ORDERED: MEROPENEM500 MG IV (09:26)
[2018-01-14] MEDS ORDERED: MIRALAX17 GM PO (09:26)
[2018-01-14] MEDS ORDERED: PROTONIX 20 MG20 MG PO (09:27)
== END 2018-01-14 13:15 | DRG 853 ==
LOC: ER 15:57 → ICU 18:27 → EROBS 18:27 → TBACV 20:03 → ICU 22:31 → 3W 12-26 16:21
PROVIDERS: Emergency Medicine; Internal Medicine; Internal Medicine Geriatric Medicine; Internal Medicine Infectious Disease; Internal Medicine Pulmonary Disease; Specialist; Surgery
PROC: 0DTJ0ZZ Resection of Appendix, Open Approach (ICD-10-PCS; principal; 2017-12-21)
PROC: 0DJD8ZZ Inspection of Lower Intestinal Tract, Via Natural or Artificial Opening Endoscopic (ICD-10-PCS; principal; 2017-12-21)
PROC: 0D9670Z Drainage of Stomach with Drainage Device, Via Natural or Artificial Opening (ICD-10-PCS; principal; 2017-12-21)
PROC: 0DB84ZZ Excision of Small Intestine, Percutaneous Endoscopic Approach (ICD-10-PCS; principal; 2017-12-21)
PROC: 5A1935Z Respiratory Ventilation, Less than 24 Consecutive Hours (ICD-10-PCS; 2017-12-22)
PROC: B548ZZA Ultrasonography of Superior Vena Cava, Guidance (ICD-10-PCS; 2018-01-14)
PROC: B5181ZA Fluoroscopy of Superior Vena Cava using Low Osmolar Contrast, Guidance (ICD-10-PCS; 2018-01-14)
PROC: 02HV33Z Insertion of Infusion Device into Superior Vena Cava, Percutaneous Approach (ICD-10-PCS; 2018-01-14)
PROC: 0DJ08ZZ Inspection of Upper Intestinal Tract, Via Natural or Artificial Opening Endoscopic (ICD-10-PCS; 2018-01-14)
DX: A41.50 Gram-negative sepsis, unspecified (principal); R65.21 Severe sepsis with septic shock; K35.2 Acute appendicitis with generalized peritonitis; J96.01 Acute respiratory failure with hypoxia; E43 Unspecified severe protein-calorie malnutrition; N17.9 Acute kidney failure, unspecified; G72.81 Critical illness myopathy; D62 Acute posthemorrhagic anemia; J98.11 Atelectasis; Z60.2 Problems related to living alone; I10 Essential (primary) hypertension; D64.9 Anemia, unspecified; K57.90 Diverticulosis of intestine, part unspecified, without perforation or abscess without bleeding; Z85.3 Personal history of malignant neoplasm of breast; Z68.33 Body mass index [BMI] 33.0-33.9, adult; Z90.13 Acquired absence of bilateral breasts and nipples
CPT/HCPCS: 10078; 10779; 27000; 50093; 50101; 50386; 50643; 50820; 51114; 51412; 51435; 51708; 51712; 56527; 56530; 57092; 62110; 62900; 70005

== ENCOUNTER → 2018-02-03 | Outpatient (CLI) | payer OTHER ==
[~2018-02-03] MED LIST: ACETAMINOPHEN325 M1 PO; CALCIUM 500 +1 EAC5 PO; CARVEDILOL25 MG PO; CLONIDINE1 EAC1 TRANSDERM; COZAAR 50 MG TA50 M1 PO; DEMADEX20 MG PO; ENOXAPARIN40 MG/0.1 SUBQ; FEMARA2.5 MG PO; GLUCOSAMINE &1 EACH PO; K-DUR 20 MEQ T20 MEQ PO; MEROPENEM500 MG IV; MIRALAX17 GM PO; NORCO 10-325 T1 EACH PO; PROTONIX 20 MG20 MG PO; VITAMIN D1000 UNI1 PO; VITAMINC500 PO
== END ==
LOC: HYPER 06:57
DX: T81.31XD Disruption of external operation (surgical) wound, not elsewhere classified, subsequent encounter (principal); I10 Essential (primary) hypertension; E43 Unspecified severe protein-calorie malnutrition; Z85.3 Personal history of malignant neoplasm of breast; Z72.89 Other problems related to lifestyle; Y83.8 Other surgical procedures as the cause of abnormal reaction of the patient, or of later complication, without mention of misadventure at the time of the procedure

== ENCOUNTER → 2018-02-19 | Outpatient (CLI) | payer OTHER | LOC: HYPER 02-18 12:10 | DX: T81.31XD Disruption of external operation (surgical) wound, not elsewhere classified, subsequent encounter (principal); I10 Essential (primary) hypertension; E43 Unspecified severe protein-calorie malnutrition; Z48.815 Encounter for surgical aftercare following surgery on the digestive system; Z85.3 Personal history of malignant neoplasm of breast; Y83.8 Other surgical procedures as the cause of abnormal reaction of the patient, or of later complication, without mention of misadventure at the time of the procedure ==

== ENCOUNTER → 2018-03-05 | Outpatient (CLI) | payer OTHER | LOC: HYPER 07:50 | DX: T81.31XD Disruption of external operation (surgical) wound, not elsewhere classified, subsequent encounter (principal); A41.9 Sepsis, unspecified organism; E43 Unspecified severe protein-calorie malnutrition; Z48.815 Encounter for surgical aftercare following surgery on the digestive system; I10 Essential (primary) hypertension; Z85.3 Personal history of malignant neoplasm of breast; Y83.8 Other surgical procedures as the cause of abnormal reaction of the patient, or of later complication, without mention of misadventure at the time of the procedure ==

== ENCOUNTER → 2018-04-21 | Outpatient (CLI) | payer OTHER | LOC: HYPER 06:41 | DX: T81.31XD Disruption of external operation (surgical) wound, not elsewhere classified, subsequent encounter (principal); E43 Unspecified severe protein-calorie malnutrition; I10 Essential (primary) hypertension; Z48.815 Encounter for surgical aftercare following surgery on the digestive system; Z85.3 Personal history of malignant neoplasm of breast; Y83.8 Other surgical procedures as the cause of abnormal reaction of the patient, or of later complication, without mention of misadventure at the time of the procedure ==